=== PATIENT | male | born 1945 | race African-American/Black ===

== ENCOUNTER 2020-09-10 16:50 | Emergency (ER) | payer OTHER ==
--- NOTE | 2020-09-10 17:18 | ED Physician Documentation ---
PD HPI LOWER EXT INJURY - Stated complaint Stated Complaint: RT LEG PX/SWELLING - Chief complaint Chief Complaint: Ext Problem - History obtained from History obtained from: Patient - Additional information Additional information: 75-year-old gentleman had a postoperative DVT in 2016. He was maintained on Xarelto then for a time briefly. Over the last several months he has had right medial calf pain which is worsened over the last few weeks with some swelling in the foot. No associated chest pain or shortness of breath. Review of Systems Constitutional: reports: Reviewed and negative Eyes: reports: Reviewed and negative Ears: reports: Reviewed and negative Nose: reports: Reviewed and negative Throat: reports: Reviewed and negative PD PAST MEDICAL HISTORY - Present Medications Home Medications: Ambulatory Orders Medication Instructions Recorded Confirmed Losartan [Cozaar] 1 tab PO BID 09/10/20 09/10/20 Tamsulosin HCl [Flomax] 1 tab PO DAILY 09/10/20 09/10/20 - Allergies Allergies/Adverse Reactions: Allergies Allergy/AdvReac Type Severity Reaction Status Date / Time Unable to Assess Allergy Verified 09/10/20 17:05 PD ED PE NORMAL - Vitals Vital signs reviewed: Yes - General General: Alert and oriented X 3, No acute distress - HEENT HEENT: PERRL, EOMI - Extremities Extremities: Other (Tenderness of the right calf without obvious asymmetry, normal pedal perfusion on the right. Negative Homans' sign.) - Neuro Neuro: Alert and oriented X 3, Normal speech Results - Vitals Vitals: Vital Signs - 24 hr 09/10/20 17:02 Temperature 36.7 C Heart Rate 67 Respiratory 16 Rate Blood Pressure 181/74 H O2 Saturation 98 Oxygen O2 Source Room air PD MEDICAL DECISION MAKING - ED course ED course: His pain is actually is much just lateral to the tibia anteriorly is anything also suspect especially given the time course that it may be tendon. That said given his history DVT is also considered an ultrasound for same was negative. Departure - Departure Disposition: 01 Home, Self Care Clinical Impression: Pain of lower extremity Qualifiers: Laterality: right Qualified Code(s): M79.604 - Pain in right leg Condition: Good Record reviewed to determine appropriate education?: Yes Instructions: ED Strain Muscle Ext Comments: As discussed, the location of the pain suggest more tendon type of pain to me than DVT. That said given your history an ultrasound was done and there is thankfully no blood clot. Tylenol and heat and gentle stretching for the pain and [facility].
[2020-09-10 18:30] VITALS: BP 149/70
--- NOTE | 2020-09-10 18:49 | Ultrasound Report ---
PROCEDURE: Duplex Ext Veins Right INDICATIONS: leg pain TECHNIQUE: Real-time imaging, as well as color and pulse Doppler interrogation, were performed of the lower extr emity deep veins from the inguinal ligament to the popliteal fossa. COMPARISON: None. FINDINGS: The deep veins are normally compressible, and free of intraluminal thrombus. Color and pu lse Doppler demonstrate normal phasic intraluminal flow. There is normal augmentation response to di stal compression maneuver. IMPRESSION: 1. No evidence of deep venous thrombosis in the right lower extremity. Reviewed by: Haseeb Azevedo MD on 09/10/2020 5:47 PM [facility] Approved by: Haseeb Azevedo MD on 09/10/2020 5:47 PM [facility] Station ID: [id number]
== END 2020-09-10 18:37 | disposition home or self-care (01) ==
LOC: ED 16:50
DX: M79.661 Pain in right lower leg (principal); Z86.718 Personal history of other venous thrombosis and embolism
CPT/HCPCS: 99283; 99284

== ENCOUNTER 2020-10-19 14:10 | Outpatient (CLI) | payer OTHER | END 2020-10-19 14:11 | disposition home or self-care (01) | LOC: COV 14:10 | PROVIDERS: ATTEND Family Medicine | DX: R05 Cough (principal); R06.02 Shortness of breath; Z20.822 Contact with and (suspected) exposure to COVID-19 ==

== ENCOUNTER 2024-01-28 09:40 | Emergency (ER) | payer BC, OTHER ==
[2024-01-28 10:15] VITALS: BP 136/64; O2SAT 98
[2024-01-28 10:42] LABS: RAPID STREP SCREEN Negative (Negative)
[2024-01-28 11:35] LABS: B. PARAPERTUSSIS- RESP PCR PAN NOT DETECTED; B. PERTUSSIS- RESP PCR PANEL NOT DETECTED; C. PNEUMONIAE- RESP PCR PANEL NOT DETECTED; CORONAVIRUS 229E-RESP PCR NOT DETECTED; CORONAVIRUS HKU1-RESP PCR NOT DETECTED; CORONAVIRUS NL63-RESP PCR NOT DETECTED; CORONAVIRUS OC43-RESP PCR NOT DETECTED; HUMAN METAPNEUMOVIRUS NOT DETECTED; INFLUENZA A- RESP PCR PANEL NOT DETECTED; INFLUENZA B - RESP PCR PANEL NOT DETECTED; M. PNEUMONIAE- RESP PCR PANEL NOT DETECTED; PARAINFLUENZA VIRUS 1 NOT DETECTED; PARAINFLUENZA VIRUS 2 NOT DETECTED; PARAINFLUENZA VIRUS 3 NOT DETECTED; PARAINFLUENZA VIRUS 4 NOT DETECTED; RHINOVIRUS/ENTEROVIRUS NOT DETECTED; RSV- RESP PCR PANEL NOT DETECTED
--- NOTE | 2024-01-28 11:35 | ED Physician Documentation ---
PD HPI URI - Stated complaint Stated Complaint: SORE THROAT,COUGH,FATIGUE - Chief complaint Chief Complaint: Heent - Additional information Additional information: 78-year-old male with history of hypertension, GERD presents emergency departm ent with his for flulike symptoms. Patient says that they just recently traveled and they started experiencing upper respiratory infection symptoms on 01/25 2024. They took multiple at home COVID test but wanted to come and see if there is any other respiratory test that they could have done here in the emergency department. He says that he is overall feeling well and is improving in regards to his symptoms but just wanted to get evaluated by a provider and they cannot get in with her primary care provider. He has no chest pain or shortness of breath mild sore throat has not taken any Tylenol ibuprofen no nausea or vomiting no fever within the last 24 hours. PD PAST MEDICAL HISTORY - Past Medical History Past Medical History: Yes Cardiovascular: Hypertension Respiratory: None Neuro: Other Endocrine/Autoimmune: None GI: GERD : None HEENT: None Psych: None Musculoskeletal: None Derm: None - Past Surgical History Past Surgical History: Yes Neuro: Other - Present Medications Home Medications: Ambulatory Orders Medication Instructions Recorded Confirmed Losartan [Cozaar] 1 tab PO BID 09/10/20 09/10/20 Tamsulosin HCl [Flomax] 1 tab PO DAILY 09/10/20 09/10/20 - Allergies Allergies/Adverse Reactions: Allergies Allergy/AdvReac Type Severity Reaction Status Date / Time lisinopril Allergy Rash Verified 01/28/24 10:15 phenytoin [From Dilantin] Allergy Dizziness Verified 01/28/24 10:15 sildenafil [From Viagra] Allergy Dizziness Verified 01/28/24 10:15 - Social History Does the pt smoke?: No Smoking Status: Never smoker Does the pt drink ETOH?: Yes Does the pt have substance abuse?: No - Immunizations Immunizations are current?: Yes PD ED PE NORMAL - Vitals Vital signs reviewed: Yes - General General: Alert and oriented X 3, No acute distress, Well developed/nourished - HEENT HEENT: Atraumatic, Moist mucous membranes, Pharynx benign - Neck Neck: Supple, no meningeal sign - Cardiac Cardiac: RRR - Respiratory Respiratory: No respiratory distress, Clear bilaterally - Abdomen Abdomen: Normal bowel sounds, Soft - Back Back: No CVA TTP - Psych Psych: Normal mood Results - Vitals Vitals: Vital Signs - 24 hr 01/28/24 10:11 Temperature 36.0 C L Heart Rate 56 L Respiratory 20 Rate Blood Pressure 136/64 H O2 Saturation 98 Oxygen O2 Source Room air - Labs Labs: Laboratory Tests 01/28/24 01/28/24 10:20 10:20 Nasal Adenovirus (PCR) NOT DETECTED Nasal B. parapertussis DNA (PCR) NOT DETECTED Nasal Coronavir 229E PCR NOT DETECTED Nasal Coronavir HKU1 PCR NOT DETECTED Nasal Coronavir NL63 PCR NOT DETECTED Nasal Coronavir OC43 PCR NOT DETECTED Nasal Enterovir/Rhinovir PCR NOT DETECTED Nasal Influenza B PCR NOT DETECTED Nasal Influenza A PCR NOT DETECTED Nasal Parainfluen 1 PCR NOT DETECTED Nasal Parainfluen 2 PCR NOT DETECTED Nasal Parainfluen 3 PCR NOT DETECTED Nasal Parainfluen 4 PCR NOT DETECTED Nasal RSV (PCR) NOT DETECTED Nasal B.pertussis DNA PCR NOT DETECTED Nasal C.pneumoniae (PCR) NOT DETECTED Som Human Metapneumo PCR NOT DETECTED Nasal M.pneumoniae (PCR) NOT DETECTED Nasal SARS-CoV-2 (PCR) DETECTED A Group A Strep Rapid Negative PD Medical Decision Making - ED course ED course: 78-year-old presents to the emergency department with his for upper respiratory infection symptoms. Patient tested positive for COVID-19 here in the emergency department as well as his . He was offered Tylenol ibuprofen for body aches and sore throat but patient kindly declined he was also offered dexamethasone also declined. He reports overall his symptoms are improving but just wanted to get further evaluation now that he knows that is COVID-19 he f eels reassured. He has no shortness of breath no chest pain I do not believe any further workup is indicated at this time return precautions given patient told to follow-up primary care provider as needed. Departure - Departure Disposition: 01 Home, Self Care Clinical Impression: COVID-19 Instructions: ED Viral Syndrome Comments: Take Tylenol or Ibuprofen for pain and discomfort, drink plenty of fluids, eat a healthy well balanced diet while you recover from COVID. Forms: PCP List Discharge Date/Time: 01/28/24 11:47
[2024-01-28 11:36] LABS: SARS-CoV-2 -RESP PCR PANEL DETECTED
== END 2024-01-28 11:47 | disposition home or self-care (01) ==
LOC: ED 09:40
DX: U07.1 COVID-19 (principal)
CPT/HCPCS: 87070; 87430; 87633; 99282; 99283